=== PATIENT | male | born 1990 | race Caucasian/White ===

== ENCOUNTER 2022-06-22 16:08 | Outpatient (CLI) | payer OTHER, SELFPAY | END 2022-06-22 16:09 | disposition home or self-care (01) | PROVIDERS: PCP Emergency Medicine; Visit Provider Emergency Medicine | DX: R10.9 Unspecified abdominal pain (principal); Z78.9 Other specified health status | CPT/HCPCS: 80048; 80076; 82607; 83690; 87045; 87046; 87086; 87338; 87427 ==

== ENCOUNTER 2022-06-23 09:06 | Outpatient (CLI) | payer OTHER, SELFPAY | END 2022-06-23 09:07 | disposition home or self-care (01) | LOC: NFLDREF 06-24 06:58 | PROVIDERS: PCP Emergency Medicine; Referring Provider Emergency Medicine; Visit Provider Emergency Medicine | DX: R10.9 Unspecified abdominal pain (principal) | CPT/HCPCS: 87338 ==

== ENCOUNTER 2022-09-23 10:36 | Outpatient (CLI) | payer OTHER, SELFPAY | END 2022-09-23 10:37 | disposition home or self-care (01) | LOC: NFLDREF 09-24 16:48 | PROVIDERS: PCP Emergency Medicine; Referring Provider Emergency Medicine; Visit Provider Physician Assistant | DX: R30.0 Dysuria (principal); R11.0 Nausea; N41.9 Inflammatory disease of prostate, unspecified; N41.0 Acute prostatitis | CPT/HCPCS: 87086 ==

== ENCOUNTER 2022-11-18 18:49 | Emergency (ER) | payer OTHER, SELFPAY ==
[2022-11-18] VITALS (11 sets, daily range): BP systolic 137–153; BP diastolic 87–120; PULSE 78–97; RESP 16–18; TEMP 36.6–37.6; O2SAT 95–99
[2022-11-18] MEDS: 0.9 % SODIUM CHLORIDE 1000 ml 1,000 ML 3000 ML IV (19:02)
[2022-11-18] MEDS: diphenhydrAMINE 50 MG/ML inj IVP (19:02)
[2022-11-18] MEDS: EPINEPHrine 0.3 MG PEN IM (19:02)
[2022-11-18] MEDS: METHYLPREDNISOLONE SOD SUCC 62.5 MG/ML (125) 93.75 MG IVP (19:04)
--- NOTE | 2022-11-18 19:13 | ED.GENADULT ---
HPI - General Adult General Chief complaint: Allergic Reaction Stated complaint: Bee sting L arm, hives Time Seen by Provider: 11/18/22 18:53 History of Present Illness HPI narrative: pt stung by yellowjacket L hand 20 minutes ago. hand red and swollen. face red. tongue feels a little swollen denies breathing problems. 31-year-old man presenting to the emergency department with concern of being stung by a ?yellow jacket?. Apparently killed the offender. This occurred about 30 minutes prior to arrival. No known allergies are prior reactions. Has though had intense reaction from this sting apparently. Said rash developed maybe arms and torso face and sensation of tongue swelling. No difficulty swallowing or breathing at this point. No sense of abdominal cramping or nausea. Generally healthy but does have a diagnosis of mild intermittent asthma. Related Data Home Medications Medication Instructions Recorded Confirmed albuterol sulfate 90 mcg/actuation 2 puff inhalation Q4H PRN asthma 11/18/22 11/18/22 aerosol inhaler Previous Rx's Medication Instructions Recorded epinephrine 0.3 mg/0.3 mL 0.3 mg (0.3 mL) IM Q5-15M PRN #2 ea 11/18/22 injection, auto-injector (EpiPen 2-Frankie) prednisone 20 mg tablet 20 mg PO BID 3 days #6 tabs 11/18/22 Allergies Allergy/AdvReac Type Severity Reaction Status Date / Time amoxicillin Allergy Severe Rash Verified 06/22/22 15:44 Review of Systems Status of ROS: Reports: 6 or more systems reviewed and unremarkable except as noted in History and below [facility] Medical History Elevated total protein ?R77.8 - Other specified abnormalities of plasma proteins (ICD-10) Elevated liver transaminase level ?R74.01 - Elevation of levels of liver transaminase levels (ICD-10) Microscopic hematuria ?R31.29 - Other microscopic hematuria (ICD-10) Alcohol use ?Z78.9 - Other specified health status (ICD-10) Abdominal pain ?R10.9 - Unspecified abdominal pain (ICD-10) Surgical History Status post meniscectomy ?Z98.890 - Other specified postprocedural states (ICD-10) History of thumb surgery ?Z98.890 - Other specified postprocedural states (ICD-10) History of extraction of renal calculus ?Z98.890 - Other specified postprocedural states (ICD-10) ?Z87.442 - Personal history of urinary calculi (ICD-10) History of colonoscopy with polypectomy ?Z98.890 - Other specified postprocedural states (ICD-10) ?Z86.010 - Personal history of colonic polyps (ICD-10) Family History Other Depression Hypothyroidism Social History Narrative: Non-smoker Chewing tobacco use Uses alcohol occasionally Does not use illicit drugs Smoking Status: Former smoker Do you use any of these nicotine containing products: Smokeless Tobacco How often do you have a drink containing alcohol: 4 or more times a week How many standard drinks containing alcohol do you have on a typical day: 1 or 2 How often do you have six or more drinks on one occasion: Never AUDIT-C Alcohol total score: 4 Non-prescribed substance use: denies use Little interest or pleasure in doing things: not at all Feeling down, depressed, or hopeless: not at all Exam Narrative: Exam Narrative: Pleasant. NAD. Calm. Face and neck is quite flushed erythematous/dark. I do not hear any stridor. Oropharynx with some hyperemia to the soft palate. Appears to be swallowing normally. Articulating normally. Unclear if macroglossia present. Lungs are clear. Heart in an elevated rate and regular rhythm without murmur rub or gallop. Abdomen is soft and nontender. There is a scratch the left ventral wrist and urticarial eruptions over the left upper arm extending into the torso. Side of inoculation looks to have been just distal to his wedding ring on his left 4th finger. Const: Vital Signs, click to edit/add: Vital Signs - 24 hr 11/18/22 18:52 11/18/22 19:00 11/18/22 19:02 Temperature 99.7 F H Pulse Rate 90 86 Pulse Rate [Pulse Oximeter] 94 Respiratory Rate 18 18 16 Blood Pressure 153/106 H 147/98 H Blood Pressure [Ri ght Upper Arm] 153/120 H Pulse Oximetry 98 98 99 Oxygen Delivery Me thod Room Air 11/18/22 19:16 11/18/22 19:32 11/18/22 19:46 Temperature Pulse Rate 93 93 88 Pulse Rate [Pulse Oximeter] Respiratory Rate 16 16 16 Blood Pressure 148/93 H 141/87 H 143/88 H Blood Pressure [Ri ght Upper Arm] Pulse Oximetry 98 97 97 Oxygen Delivery Me thod 11/18/22 20:01 11/18/22 20:16 11/18/22 20:31 Temperature Pulse Rate 78 89 84 Pulse Rate [Pulse Oximeter] Respiratory Rate 16 18 16 Blood Pressure 138/92 H 138/90 H 140/95 H Blood Pressure [Ri ght Upper Arm] Pulse Oximetry 96 96 95 Oxygen Delivery Me thod 11/18/22 21:00 11/18/22 21:01 Temperature 97.8 F Pulse Rate 85 97 Pulse Rate [Pulse Oximeter] Respiratory Rate 16 Blood Pressure 137/92 H Blood Pressure [Ri ght Upper Arm] Pulse Oximetry 95 95 Oxygen Delivery Me thod Documenting provider has reviewed patient's vital signs: yes Course Vital Signs Vital signs: Initial Vital Signs Temperature 99.7 F H 11/18/22 18:52 Temperature Source Temporal Artery Scan 11/18/22 18:52 Pulse Rate 94 11/18/22 18:52 Respiratory Rate 18 11/18/22 18:52 Blood Pressure 153/120 H 11/18/22 18:52 Blood Pressure Mean 131 H 11/18/22 18:52 Blood Pressure Position Supine 11/18/22 18:52 Pulse Oximetry 98 11/18/22 18:52 Oxygen Delivery Method Room Air 11/18/22 18:52 Vital Signs Temperature 99.7 F H 11/18/22 18:52 Pulse Rate 94 11/18/22 18:52 Respiratory Rate 18 11/18/22 18:52 Blood Pressure 153/120 H 11/18/22 18:52 Pulse Oximetry 98 11/18/22 18:52 Oxygen Delivery Method Room Air 11/18/22 18:52 Temperature 97.8 F 11/18/22 21:01 Pulse Rate 97 11/18/22 21:01 Respiratory Rate 16 11/18/22 21:01 Blood Pressure 137/92 H 11/18/22 21:01 Pulse Oximetry 95 11/18/22 21:01 Oxygen Delivery Method Room Air 11/18/22 18:52 Medical Decision Making MDM Narrative Medical decision making narrative: This would appear to be in anaphylactic reaction. Urticarial eruptions. IVs established. Given oral involvement will be given epinephrine IM. Also IV fluids, diphenhydramine, Solu-Medrol. The monitoring supervisor corduroy cutting and oximetry for improvement. Treatments as above. Upon reassessment is increasingly improved. Finally no longer flushed. Is hoping he can depart the emergency department. See patient discharge plan. Medical Records Medical records reviewed: Yes I reviewed the patient's medical records ECG Data Attestation: I personally reviewed and interpreted this ECG as follows: (Given epinephrine --EKG noted in sinus rate of 88 without acute ischemic changes) Critical Care Time Critical Care Time Critical Care Time: Yes Attestation: The patient required my highest level preparedness to intervene emergently and I personally spent this critical care time directly and personally managing the patient. This critical care time included: Obtaining a history; Examining the patient; Pulse oximetry; Ordering and reviewing of studies; Arranging urgent treatment with development of a management plan; Evaluation of patients response to treatment; Frequent reassessment discussions with other providers. This critical care time was performed to assess and manage the high probability of imminent life-threatening deterioration that could result in multiorgan failure. It was exclusive of separate billable procedures and treating other patients and teaching time. Total Critical Care Time in Minutes: 30 Discharge Plan Discharge Clinical Impression: Anaphylaxis, Hornet sting Patient Disposition: Home w/ Parent or Adult Condition: Improved Additional Instructions: Hydrate. Prescribing prednisone over the next 3 days. For breakthrough itch or small rash can take diphenhydramine. If any indication of throat tightening or difficulty breathing, rapidly expanding symptoms on exposure in the future, EpiPen will be available. Would also take diphenhydramine at that time and then present to the emergency department. Prescriptions: New epinephrine [EpiPen 2-Frankie] 0.3 mg/0.3 mL auto-injector 0.3 mg IM Q5-15M PRNQty: 2 0RF Rx Instructions: do not exceed 3 doses per episode prednisone 20 mg tablet 20 mg PO BID 3 Days Qty: 6 1RF No Action albuterol sulfate 90 mcg/actuation HFA aerosol inhaler 2 puff INHALATION Q4H PRN (Reason: asthma) Follow Up/Referrals: Angela Oliveira MD [Staff Physician] - Stand Alone Forms: Share Some Style Info Instructions
== END 2022-11-18 21:32 | disposition home or self-care (01) ==
PROVIDERS: Emergency Provider Family Medicine
DX: T63.451A Toxic effect of venom of hornets, accidental (unintentional), initial encounter (principal); L50.0 Allergic urticaria
CPT/HCPCS: 96372; 96374; 99284; 99291; J0171; J1200; J2930; J7030